=== PATIENT | female | born 1995 | race Two or more races ===

== ENCOUNTER 2025-01-16 10:00 | Observation (INO) | payer OTHER, SELFPAY ==
[2025-01-16 10:01] VITALS: BP 98/63; PULSE 99; RESP 16; RESP 99; TEMP 36.9
[2025-01-16 10:14] VITALS: BP 98/63; PULSE 89
[2025-01-16 10:24] VITALS: BMI 28.0
[2025-01-16 10:25] VITALS: TEMP 36.9
--- NOTE | 2025-01-16 10:25 | PD.LDPN ---
Documentation for date of: 01/16/25 OB Labor Progress Note Pain Control Comments: Epidural Pelvic Exam Dilation (cm): 6 Effacement (%): 90 station: -1 Amniotic membrane status: Ruptured Comments: RN reports no intact amniotic sac on exam Contractions Contraction frequency: q 3 min Status status: Category ll Comments: T 101 FHT baseline 180's with variability and accelerations
[2025-01-16 10:48] VITALS: BP 117/60; PULSE 76
== END 2025-01-16 11:35 | disposition home or self-care (01) ==
PROVIDERS: Admitting Provider Specialist; Visit Provider Specialist
DX: O47.1 False labor at or after 37 completed weeks of gestation (principal); Z3A.40 40 weeks gestation of pregnancy
CPT/HCPCS: 59025; 59899

== ENCOUNTER 2025-01-16 19:49 | Inpatient (IN) | payer OTHER, SELFPAY ==
[2025-01-16] VITALS (53 sets, daily range): BP systolic 98–117; BP diastolic 50–66; PULSE 82–115; TEMP 36.7; O2SAT 91–100; BMI 28.2
--- NOTE | 2025-01-16 11:38 | ESHP_ITS ---
RE: DEWEY ZHAO : 1995 DATE OF ADMISSION: 01/16/2025 HISTORY OF PRESENT ILLNESS: This is a 29-year-old 2, para 1-0-0-1 with a due date of 01/15/2025 with intrauterine at 40 weeks and 1 day, who presents to labor and delivery for labor check. The patient reports contractions. She denies any leaking or bleeding. She reports normal movement. [facility] with [facility] and was uncomplicated. ALLERGIES: NO KNOWN DRUG ALLERGIES. MEDICATIONS: 1. multivitamin 2. Ferrous sulfate 325 mg one p.o. b.i.d. PAST MEDICAL HISTORY: Iron deficiency anemia. SOCIAL HISTORY: She denies any alcohol, drug use, or smoking. FAMILY HISTORY: Colon cancer, diabetes, stroke. OBSTETRIC HISTORY: In 10/2021, 40 weeks, normal vaginal delivery, 8 pound 1 ounce female. PAST SURGICAL HISTORY: Denies. REVIEW OF SYSTEMS: She denies any chest pain, palpitations, cough, fever, shortness of breath, or lower extremity pain. She denies any headache, change in vision, or right upper quadrant pain. PHYSICAL EXAMINATION: VITAL SIGNS: Blood pressure 120/66, heart rate 88, respirations 18, temperature 98.2. HEENT: Oropharynx and sclerae are clear. LUNGS: Clear to auscultation bilaterally. HEART: Regular rate and rhythm. ABDOMEN: Gravid term size consistent with estimated weight 8 pounds. PELVIC: See RN notes. EXTREMITIES: Nontender. SKIN: No gross rashes or lesions. NEUROLOGIC: No focal deficits. ASSESSMENT AND PLAN: Intrauterine at 40 weeks and 1 day, labor. Anticipate spontaneous vaginal delivery. Informed consent was obtained. The patient is made aware of the risks, complications, alternatives, and benefits of the proposed procedure and she agrees. She is aware of the risk of operative vaginal delivery and delivery and agrees with these modes of delivery if indicated. DT: 10:22:54 TT: 11:25:00 Ref: [id number] - TID: [id number]
[2025-01-16] MEDS: RINGERS LACTATED 1000 ML 1,000 ML 100 ML IV (20:16)
[2025-01-16 21:27] LABS: Basophils % (Auto) 0 % (0-2.5); Eosinophils % (Auto) 0 % (0-10); Hematocrit 33.9 % (36.0-46.0); Hemoglobin 11.9 g/dL (12.0-16.0); Immature Granulocytes % (Auto) 1 % (0-0); Immature Granulocytes Auto 0.07 Thou/mm3 (0.00-0.00); Lymphocytes # (Auto) 1.4 Thou/mm3 (1.0-4.8); Lymphocytes % (Auto) 13 % (10-50); Mean Corpuscular HGB Conc 35.1 g/dl (31.0-37.0); Mean Corpuscular Hemoglobin 31.2 pg (25.0-35.0); Mean Corpuscular Volume 89 fL (80-100); Monocytes # (Auto) 0.7 Thou/mm3 (0.0-0.8); Monocytes % (Auto) 7 % (0-12); Neutrophils # (Auto) 8.5 Thou/mm3 (1.8-7.7); Neutrophils % (Auto) 79 % (37-80); Nucleated Red Blood Cell % 0 /100 WBC (0); Platelet Count 232 Thou/mm3 (140-440); RDW Standard Deviation 42.7 fL (36.4-46.3); Red Blood Count 3.81 Miln/mm3 (4.00-5.20); White Blood Count 10.7 Thou/mm3 (3.6-11.0)
[2025-01-16 22:06] LABS: Syphilis Nonreactive (Nonreactive)
[2025-01-16] MEDS: MINERAL OIL 30 ML UDC TOP (22:21)
[2025-01-16] MEDS: LIDOCAINE HCL 1% 20 ML VIAL INFL (22:24)
[2025-01-16] MEDS: MISOPROSTOL 200 mCg TABLET 800 MCG PR (22:36)
[2025-01-16] MEDS: BENZO/LANO/ALOE (Dermoplast) 60 GM CAN 1 SPRAY TOP (22:37)
--- NOTE | 2025-01-16 22:42 | PD.LDDS ---
DS: Providers Provider Date of admission: 01/16/25 20:00 Primary care physician: Physician No Primary/Family Admitting Provider: Sy Doll MD Attending Provider on Admission: Sy Doll MD Attending Provider on DC: Sy Doll MD Discharging Provider: Sy Doll MD DS: Diagnosis Discharge Diagnosis (1) Normal spontaneous vaginal delivery: Status: Acute (2) Uterine atony, , current hospitalization: Status: Acute (3) care following vaginal delivery: Status: Acute Problem List Completed Was Problem List Reviewed/Reconciled?: Yes Summary/Hosp Course Peripartum Data Delivery Method: Normal Vaginal Delivery [place] 1: Gender: Female Disposition of : home Exam Vital Signs Temp Pulse BP Pulse Ox 98.1 F 90 110/63 99 01/16/25 21:28 01/16/25 21:14 01/16/25 21:14 01/16/25 22:40 Discharge Plan Plan Patient Disposition: HOME (Self Care) Patient condition on transfer: Stable Prescriptions/Referrals Prescriptions/Med Rec: New ibuprofen 600 mg tablet 600 mg PO Q6H PRN (Reason: pain) Qty: 30 0RF Continued PNV [id number]-ferrous fumarate-FA [] 28 mg iron- 800 mcg tablet 1 tab PO DAILY Discontinued ferrous sulfate 325 mg (65 mg iron) tablet Patient Comments: TAKE 1 TABLET BY MOUTH EVERY DAY One Daily 27 mg iron- 800 mcg tablet Patient Comments: Take 1 tablet by mouth once a day Referrals: No Primary/Family,Physician [Primary Care Provider] - Patient/Caregiver Discharge Instructions Discharge Activity: activity as tolerated Other Discharge Activity Instructions:: Follow up office 6 weeks. Print Language: Kiswahili Stand Alone Forms: Michela Award Info., Patient Portal Info Letter Planned Discharge Date 01/18/25
--- NOTE | 2025-01-16 22:42 | PD.LDDELS ---
Data (Vera) Data Hx Section: No : 2 Term: 1 : 0 : 0 Delivery Data (Vera) Delivery Data EDC: 01/15/25 EDC calculated by:: LMP/early US confirmation Gestational age (weeks): 40 Gestational age (days): 1 Delivered by: Sy Doll Delivery Method Delivery: Vaginal Presentation: Vertex Position: OA Placenta Placenta Delivery: Spontaneous Placenta Cultures Obtained: No Placenta Sent for Examination: No Cord Sample: Cord Blood Obtained Lacerations #1: Perineal: 2nd degree Perineal repair Sutures used for repair: other EBL Estimated blood loss (ml): 200 Additional Procedures None Complications Complications: Uterine atony : Pitocin, Methergine, Cytotec. Data (Evra) Data Gender: Female
[2025-01-16] MEDS: METHYLERGONOVINE INJ 0.2 MG/ML VIAL IM (23:03)
[2025-01-17] VITALS (19 sets, daily range): BP systolic 93–109; BP diastolic 51–67; PULSE 70–95; RESP 16–18; TEMP 36.8–37.3; O2SAT 89–100
[2025-01-17] MEDS: IBUPROFEN TAB 400 MG TABLET 800 MG PO ×2 (01:56→13:07)
[2025-01-17 03:22] LABS: Basophils % (Auto) 0 % (0-2.5); Eosinophils % (Auto) 0 % (0-10); Hematocrit 32.6 % (36.0-46.0); Hemoglobin 11.3 g/dL (12.0-16.0); Immature Granulocytes % (Auto) 1 % (0-0); Lymphocytes # (Auto) 1.1 Thou/mm3 (1.0-4.8); Lymphocytes % (Auto) 8 % (10-50); Mean Corpuscular HGB Conc 34.7 g/dl (31.0-37.0); Mean Corpuscular Hemoglobin 31.4 pg (25.0-35.0); Mean Corpuscular Volume 91 fL (80-100); Monocytes # (Auto) 0.7 Thou/mm3 (0.0-0.8); Monocytes % (Auto) 5 % (0-12); Neutrophils # (Auto) 11.8 Thou/mm3 (1.8-7.7); Neutrophils % (Auto) 86 % (37-80); Nucleated Red Blood Cell % 0 /100 WBC (0); Platelet Count 183 Thou/mm3 (140-440); RDW Standard Deviation 43.3 fL (36.4-46.3); White Blood Count 13.8 Thou/mm3 (3.6-11.0)
--- NOTE | 2025-01-17 11:51 | ESPR_ITS ---
RE: DEWEY ZHAO : 1995 DATE OF SERVICE: 01/17/2025 SUBJECTIVE: day #1, the patient denies any problem or complaint. She is voiding. She is ambulating. She is tolerating diet. She is passing flatus. She denies any excessive vaginal bleeding. She denies any dizziness or lightheadedness. She denies any chest pain, palpitations, shortness of breath, or lower extremity pain. She denies any depression or anxiety. OBJECTIVE: Vital Signs: Blood pressure 99/62, heart rate 88, respirations 18, temperature 99.2, pulse oximetry 96% on room air. Lungs: Clear to auscultation bilaterally. Heart: Regular rate and rhythm. Abdomen: Fundus is firm, nontender. Extremities: Nontender. LABORATORY DATA: Hemoglobin free delivery is 11.9, post delivery is 11.3. ASSESSMENT: day #1 status post spontaneous vaginal delivery. PLAN: Discharge home. Discharge instructions were given. Follow up in the office in 6 weeks. DT: 09:15:30 TT: 11:50:00 Ref: [id number] - TID: [id number]
[2025-01-18 00:01] VITALS: BP 107/70; PULSE 76; RESP 16; TEMP 36.8
[2025-01-18 03:55] VITALS: BP 102/65; PULSE 77; RESP 18; TEMP 36.8
[2025-01-18 07:30] VITALS: BP 102/67; PULSE 76; RESP 16; TEMP 36.6
--- NOTE | 2025-01-18 08:44 | ESPR_ITS ---
Subjective Subjective Interval history: Patient is a 29-year-old now P2002 status post vaginal delivery 01/16/[address] Doll. She is doing well. She is resting comfortably and ready to go home. She did have some stitches at delivery but her pain is well- controlled she is breast-feeding. Exam Vital Signs Temp Pulse Resp BP Pulse Ox O2 Del Method 98.2 F 77 18 102/65 96 Room Air 01/18/25 03:55 01/18/25 03:55 01/18/25 03:55 01/18/25 03:55 01/17/25 04:20 01/18/25 03:55 Narrative Exam Patient is alert and oriented x 3 resting comfortably with baby and father the baby be in bed Constitutional Comments: Fundus is firm nontender extremities show no erythema no significant edema. Objective Labs 01/17/25 03:08 Assessment & Plan Problem List (1) Normal spontaneous vaginal delivery: Status: Acute (2) Uterine atony, , current hospitalization: Status: Acute (3) care following vaginal delivery: Status: Acute (4) Term delivered: Status: Acute Assessment and plan: Discharge instructions were given. Patient was told to call for fevers heavy vaginal bleeding or depression. All questions were answered. She is breast-feeding. We will discharge her home later today. Time Spent With Patient Time: Total time spent is greater than 50% in coordination of care (as documented) at patient's floor/unit and/or counseling patient:
== END 2025-01-18 11:32 | disposition home or self-care (01) | DRG 807 ==
LOC: S4SX 22:37 → S4NX 01-17 01:21
PROVIDERS: Admitting Provider Specialist; Visit Provider Specialist
DX: O48.0 Post-term pregnancy (principal); Z37.0 Single live birth; O70.1 Second degree perineal laceration during delivery; O62.2 Other uterine inertia; Z3A.40 40 weeks gestation of pregnancy
CPT/HCPCS: 36415; 59409; 85025; 86780; 86850; 86900; 86901; 94762; J2210; J3490; J7120; S0191; A9270